=== PATIENT | female | born 1950 | race Caucasian/White ===

== ENCOUNTER 2019-01-18 11:06 | Emergency (ER) | payer MEDICARE ==
[2019-01-18] MEDS ORDERED: 0.9 % SODIUM CHLORIDE 1,000 ML BAG IV ONE (11:29)
[2019-01-18 11:43] LABS: BASO % 0.7 % (0-6); EOS % 2.9 % (0-6); GRAN % 63.7 % (47-80); HEMATOCRIT 38.3 % (35.0-47.0); HEMOGLOBIN 12.3 gm/dl (11.6-16.0); LYMPH % 25.7 % (16-45); MEAN CELL VOLUME 98.2 fl (81-97); MEAN CORPUSCULAR HEMOGLOBIN 31.5 pg (27-33); MEAN CORPUSCULAR HGB CONC 32.1 g/dl (32-36); MEAN PLATELET VOLUME 10.3 fl (7.4-10.4); PLATELET COUNT 286 K/uL (130-400); RED CELL DISTRIBUTION WIDTH 13.2 % (11.5-14.5); WHITE BLOOD COUNT W/O DIFF 8.8 K/uL (4.2-12.2)
[2019-01-18 11:59] LABS: BLOOD UREA NITROGEN 15 mg/dL (8-23); CREATININE 0.6 mg/dL (0.5-0.9); EST GLOMERULAR FILTRATION RATE > 60 mL/min
[2019-01-18 12:00] LABS: TOTAL PROTEIN 7.8 g/dL (6.6-8.7)
[2019-01-18 12:02] LABS: GLUCOSE,RANDOM 119 mg/dL (74-109)
--- NOTE | 2019-01-18 12:02 | Emergency Department Record ---
History of Present Illness - General Chief Complaint: Abdominal Pain Stated Complaint: ABD PAIN Time Seen by Provider: 01/18/19 11:24 Source: Patient Mode of Arrival: Ambulatory Limitations: No limitations - History of Present Illness Initial Comments: pt states she has pain in her llq and has a hx of diverticulitis. no n/v/c. she has had a few bouts of diarrhea. her pain started a few days ago MD Complaint: Abdominal pain Onset/Timin -: Days(s) Location: LLQ Radiation: None Migration to: No migration Severity: Moderate Severity scale (1-10): 5 Quality: Cramping Consistency: Constant Improves With: Nothing Worsens With: Nothing Associated Symptoms: Diarrhea, Nausea - Related Data Patient : No Hx Age of Menopause: 41 Home Medications Medication Instructions Recorded Confirmed Last Taken Aspirin [Aspir-Low] 81 mg PO DAILY 01/18/19 01/18/19 Unknown Omeprazole [Prilosec] 20 mg PO DAILY 01/18/19 01/18/19 Unknown Previous Rx's Medication Instructions Recorded Ciprofloxacin HCl [Cipro] 500 mg PO Q12HR #14 tablet 01/18/19 Hydrocodone/Acetaminophen [[place] 1 each PO Q6HR #10 tablet 01/18/19 5-325 Tablet] Metronidazole [Flagyl] 500 mg PO Q8HR #21 tablet 01/18/19 Allergies Allergy/AdvReac Type Severity Reaction Status Date / Time No Known Drug Allergies Allergy Verified 01/18/19 11:18 Travel Screening - Travel/Exposure Within Last 30 Days Have you traveled within the last 30 days?: No Review of Systems Reviewed: No additional complaints except as noted below Constitutional: Reports: As per HPI. Denies: Chills, Fever, Malaise, Night sweats, Weakness, Weight change Eyes: Reports: As per HPI. Denies: Eye discharge, Eye pain, Photophobia, Vision change ENT: Reports: As per HPI. Denies: Congestion, Dental pain, Ear pain, Epistaxis , Hearing loss, Throat pain Respiratory: Reports: As per HPI. Denies: Cough, Dyspnea, Hemoptysis, Stridor, Wheezes Cardiovascular: Reports: As per HPI. Denies: Arrhythmia, Chest pain, Dyspnea on exertion, Edema, Murmurs, Orthopnea, Palpitations, Paroxysmal nocturnal dyspnea, Rheumatic Fever, Syncope Endocrine: Reports: As per HPI. Denies: Fatigue, Heat or cold intolerance, Polydipsia, Polyuria Gastrointestinal: Reports: As per HPI. Denies: Abdominal pain, Constipation, Diarrhea, Hematemesis, Hematochezia, Melena, Nausea, Vomiting Genitourinary: Reports: As per HPI. Denies: Abnormal menses, Discharge, Dyspareunia, Dysuria, Frequency, Hematuria, Incontinence, Retention, Urgency Musculoskeletal: Reports: As per HPI. Denies: Arthralgia, Back pain, Gout, Joint swelling, Myalgia, Neck pain Skin: Reports: As per HPI. Denies: Bruising, Change in color, Change in hair/ nails, Lesions, Pruritus, Rash Neurological: Reports: As per HPI. Denies: Abnormal gait, Confusion, Headache, Numbness, Paresthesias, Seizure, Tingling, Tremors, Vertigo, Weakness Psychiatric: Reports: As per HPI. Denies: Anxiety, Auditory hallucinations, Depression, Homicidal thoughts, Suicidal thoughts, Visual hallucinations Hematological/Lymphatic: Reports: As per HPI. Denies: Anemia, Blood Clots, Easy bleeding, Easy bruising, Swollen glands Past Medical History - SOCIAL HISTORY Smoking Status: Current every day smoker Alcohol Use: Occasional Drug Use: None - RESPIRATORY Hx Respiratory Disorders: No - CARDIOVASCULAR Hx Cardio Disorders: Yes Comment:: PVD - NEURO Hx Neuro Disorders: No - GI Hx GI Disorders: Yes Hx Diverticulitis: Yes Hx GI Bleed: Yes Hx Reflux: Yes Hx Ulcer: Yes - Hx Genitourinary Disorders: No - ENDOCRINE Hx Endocrine Disorders: Yes Hx Thyroid Disease: Yes - MUSCULOSKELETAL Hx Musculoskeletal Disorders: Yes - PSYCH Hx Psych Problems: No - HEMATOLOGY/ONCOLOGY Hx Hematology/Oncology Disorders: No Family Medical History Any Significant Family History?: No Physical Exam - General General Appearance: Alert, Oriented x3, Cooperative, Mild distress - Head Head exam: Normal inspection - Eye Eye exam: Normal appearance, PERRL, EOMI Pupils: Normal accommodation - ENT ENT exam: Normal exam, Mucous membranes moist, Normal external ear exam, Normal orophraynx Ear exam: Normal external inspection. negative: External canal tenderness Nasal Exam: Normal inspection. negative: Discharge, Sinus tenderness Mouth exam: Normal external inspection, Tongue normal Teeth exam: Normal inspection. negative: Dental caries Throat exam: Normal inspection. negative: Tonsillar erythema, Tonsillar exudate - Neck Neck exam: Normal inspection, Full ROM. negative: Tenderness - Respiratory Respiratory exam: Normal lung sounds bilaterally. negative: Respiratory distress - Cardiovascular Cardiovascular Exam: Regular rate, Normal rhythm, Normal heart sounds - GI/Abdominal GI/Abdominal exam: Soft, Normal bowel sounds, Tenderness (llq) - Rectal Rectal exam: Deferred - exam: Deferred - Extremities Extremities exam: Normal inspection, Full ROM, Normal capillary refill. negative: Tenderness - Back Back exam: Reports: Normal inspection, Full ROM. Denies: Muscle spasm, Rash noted, Tenderness - Neurological Neurological exam: Alert, CN II-XII intact, Normal gait, Oriented X3 - Psychiatric Psychiatric exam: Normal affect, Normal mood - Skin Skin exam: Dry, Intact, Normal color, Warm Course Vital Signs 01/18/19 11:11 Temperature 97.9 F Pulse Rate 97 H Respiratory 20 Rate Blood Pressure 164/77 Pulse Ox 96 Medical Decision Making - Lab Data Result diagrams: 01/18/19 11:37 01/18/19 11:37 Lab Results 01/18/19 Range/Units 11:37 WBC 8.8 (4.2-12.2) K/uL RBC 3.90 (3.80-5.40) M/uL Hgb 12.3 (11.6-16.0) gm/dl Hct 38.3 (35.0-47.0) % MCV 98.2 H (81-97) fl MCH 31.5 (27-33) pg MCHC 32.1 (32-36) g/dl RDW 13.2 (11.5-14.5) % Plt Count 286 (130-400) K/uL MPV 10.3 (7.4-10.4) fl Gran % 63.7 (47-80) % Lymphocytes % 25.7 (16-45) % Monocytes % 7.0 (0-9) % Eosinophils % 2.9 (0-6) % Basophils % 0.7 (0-6) % Disposition Disposition: Discharge Clinical Impression: Diverticulitis Disposition: Home, Self-Care Condition: (1) Good Instructions: Diverticulitis (ED) Additional Instructions: follow up with family doctor. return sooner if worse. rest. Prescriptions: Hydrocodone/Acetaminophen [[place] 5-325 Tablet] 1 each PO Q6HR #10 tablet Metronidazole [Flagyl] 500 mg PO Q8HR #21 tablet Ciprofloxacin HCl [Cipro] 500 mg PO Q12HR #14 tablet Forms: Patient Portal Access Quality - Quality Measures Quality Measures: N/A - Blood Pressure Screening Does Patient Have Any of the Following: No Blood Pressure Classification: Hypertensive Reading Systolic Measurement: 164 Diastolic Measurement: 77 Screening for High Blood Pressure: < First Hypertensive BP, F/U Documented > [ G8950] First Hypertensive Follow-up Interventions: Follow-up with rescreen GT 1 day and LT 4 weeks.
[2019-01-18 12:04] LABS: ALT/SGPT 13 U/L (<33); AST/SGOT 15 U/L (10.0-35.0)
[2019-01-18 12:05] LABS: ALBUMIN 3.8 g/dL (4.0-5.0); ALKALINE PHOSPHATASE 87 U/L (45-87)
[2019-01-18 12:13] LABS: URINE APPEARANCE SL CLOUDY; URINE BILIRUBIN NEGATIVE (NEGATIVE); URINE BLOOD NEGATIVE (NEGATIVE); URINE COLOR YELLOW; URINE GLUCOSE (UA) NEGATIVE (NEGATIVE); URINE KETONE NEGATIVE (NEGATIVE); URINE LEUKOCYTE ESTERASE NEGATIVE (NEGATIVE); URINE NITRITE NEGATIVE (NEGATIVE); URINE PROTEIN NEGATIVE (NEGATIVE); URINE UROBILINOGEN 0.2 E.U./dL (0.20 - 1.00)
--- NOTE | 2019-01-20 18:02 | CT SCAN REPORT ---
DATE: 01/18/2019. EXAM: CT OF THE ABDOMEN AND PELVIS. HISTORY: Left lower quadrant pain for two days. TECHNIQUE: CT of the abdomen and pelvis was performed without intravenous or oral contrast. COMPARISON: CT of the abdomen and pelvis dated 07/02/2016. FINDINGS: Lung bases are unremarkable. Examination compromised by the lack of intravenous and oral contrast. There are bilateral vascular calcifications in the kidneys bilaterally. No obvious collecting system calcification or renal calculus. No ureteral calculus or hydronephrosis. There is no contour-deforming renal mass. There is apparent wall thickening of the sigmoid colon. There is diverticulosis and there are some streaky changes in the fat adjacent to the sigmoid colon suggesting diverticulitis. No abscess. No free air or free fluid identified. The unenhanced liver and spleen are unremarkable. No pancreatic mass or inflammatory changes. No adrenal lesion. No calcified gallstones. There are atherosclerotic changes in the abdominal aorta with no aneurysm. No periaortic mass or adenopathy. There are no dilated bowel loops. Uterus and ovaries are grossly unremarkable. IMPRESSION: 1. THERE IS DIVERTICULOSIS. 2. THERE ARE INFLAMMATORY CHANGES SUGGESTED IN THE SIGMOID COLON LIKELY DUE TO DIVERTICULITIS. NO ABSCESS, FREE AIR, OR FREE FLUID IDENTIFIED. 3. BILATERAL RENAL CALCIFICATIONS LIKELY AN AVASCULAR NATURE. NO RENAL CALCULI OR URETERAL CALCULI SEEN. NO HYDRONEPHROSIS. 4. OTHER FINDINGS ABOVE. JOB NUMBER: [id number] [facility]
== END 2019-01-18 13:19 | disposition home or self-care (01) ==
LOC: ER 11:06
DX: K57.92 Diverticulitis of intestine, part unspecified, without perforation or abscess without bleeding (principal); R19.7 Diarrhea, unspecified; R11.0 Nausea; F17.210 Nicotine dependence, cigarettes, uncomplicated
CPT/HCPCS: 74176; 80053; 81003; 83605; 85025; 96360; 99284; J7030

== ENCOUNTER 2019-08-29 16:24 | Emergency (ER) | payer MEDICARE ==
--- NOTE | 2019-08-29 16:56 | Emergency Department Record ---
History of Present Illness - General Chief complaint: Eye Problem Stated complaint: R EYE SWOLLEN/RASH IN SCALP/PAIN ON R SIDE OF FACE Time Seen by Provider: 08/29/19 16:46 Source: Patient Mode of Arrival: Ambulatory Limitations: No limitations - History of Present Illness Initial comments: 68 yo female presents with a left sided facial rash that involves the forehead, eye lids, and cheek. The onset was last . She states it is irritating but not particular painful. It does not affect her vision except for some left lid swelling. No vision lose. She reports she was seen in the [facility] care last week and was treated with Amoxicillin for fluid in the left ear. She still has some pain over the left ear area but the rash does not effect the ear. No fever. No ringing in her ears. MD chief complaint: Other (Facial erythema forehead around the eye) -: Days(s) (3) Onset Description: Gradual Location: Left eye Place: Home If Injury: None Eye Symptoms: Other Severity: Moderate If Pain, Quality: Aching Consistency: Constant Associated Symptoms: None Treatments Prior to Arrival: None - Related Data Previous Rx's Medication Instructions Recorded Hydrocodone/Acetaminophen [[place] 1 each PO Q6HR #10 tablet 01/18/19 5-325 Tablet] Allergies Allergy/AdvReac Type Severity Reaction Status Date / Time No Known Drug Allergies Allergy Unverified 08/25/19 11:28 Review of Systems Constitutional: Denies: Chills, Fever, Malaise, Weakness Eyes: Denies: Eye discharge, Eye pain, Photophobia, Vision change ENT: Reports: Ear pain. Denies: Congestion, Throat pain Respiratory: Denies: Cough, Dyspnea, Hemoptysis, Stridor, Wheezes Cardiovascular: Denies: Chest pain, Palpitations, Syncope Endocrine: Denies: Fatigue, Polydipsia, Polyuria Gastrointestinal: Denies: Abdominal pain, Diarrhea, Nausea, Vomiting Genitourinary: Denies: Dysuria, Urgency Musculoskeletal: Denies: Arthralgia, Back pain, Myalgia Skin: Denies: Bruising, Change in color, Rash Neurological: Denies: Headache, Numbness, Weakness Psychiatric: Denies: Anxiety Hematological/Lymphatic: Denies: Easy bleeding, Easy bruising Past Medical History - SOCIAL HISTORY Smoking Status: Current every day smoker Drug Use: None - RESPIRATORY Hx Respiratory Disorders: No - CARDIOVASCULAR Hx Cardio Disorders: Yes Comment:: PVD - NEURO Hx Neuro Disorders: No - GI Hx GI Disorders: Yes Hx Diverticulitis: Yes Hx GI Bleed: Yes Hx Reflux: Yes Hx Ulcer: Yes - Hx Genitourinary Disorders: No - ENDOCRINE Hx Endocrine Disorders: Yes Hx Thyroid Disease: Yes - MUSCULOSKELETAL Hx Musculoskeletal Disorders: Yes - PSYCH Hx Psych Problems: No - HEMATOLOGY/ONCOLOGY Hx Hematology/Oncology Disorders: No Physical Exam - General General Appearance: Alert, Oriented x3, Cooperative, No acute distress Limitations: No limitations - Head Head exam: negative: Normal inspection Image of Face/Head: 1 - erythema, slight induration, no vesicle or blisters, soft lid edema involves the nose, spares right side - Eye Eye exam: Conjunctival injection, EOMI, Periorbital swelling. negative: Normal appearance, Periorbital tenderness, Scleral icterus - ENT ENT exam: Normal exam, Mucous membranes moist, Normal orophraynx, TM's normal bilaterally Ear exam: Normal external inspection Nasal Exam: negative: Normal inspection (erythema external) Mouth exam: Normal external inspection Throat exam: Normal inspection - Neck Neck exam: Normal inspection. negative: Lymphadenopathy - Respiratory Respiratory exam: Normal lung sounds bilaterally. negative: Respiratory distress, Rhonchi, Stridor, Wheezes - Cardiovascular Cardiovascular Exam: Regular rate, Normal rhythm, Normal heart sounds - GI/Abdominal GI/Abdominal exam: Soft. negative: Tenderness - Rectal Rectal exam: Deferred - exam: Deferred - Extremities Extremities exam: Normal inspection - Back Back exam: Denies: CVA tenderness (R), CVA tenderness (L) - Neurological Neurological exam: Alert, Oriented X3 - Psychiatric Psychiatric exam: Normal affect, Normal mood. negative: Agitated, Anxious - Skin Skin exam: Dry, Erythema, Intact, Warm Course - Reevaluation(s) Reevaluation #1: 08/29/19 17:10 The eye was stained and examined under magnification No abnormal stain uptake. No visible lesions She does not have any subjective vision changes . She states the only limitation to her vision is lid swelling 08/29/19 17:14 The findings at this time suggest either cellulitis of the face or possible sh ingles. There are no discrete blisters or vesicles. The eye staining is negative. I recommend a swab for shingles and treat for cellulitis and shingles at this time 08/29/19 17:39 The labs were reviewed No acute changes on the CBC or BMP The CRP is normal 08/29/19 19:37 I recommend admission at this time The patient declines but will return in 10 hours for second dose of antibiotics She will be provided the next dose of Acyclovir 800mg Medical Decision Making - Lab Data Result diagrams: 08/29/19 17:10 08/29/19 17:10 Disposition Disposition: Discharge Clinical Impression: Cellulitis Qualifiers: Site of cellulitis: face Qualified Code(s): L03.211 - Cellulitis of face Shingles Qualifiers: Herpes zoster complications: with other complications Qualified Code(s): B02.8 - Zoster with other complications Disposition: Home, Self-Care Condition: (1) Good Instructions: Shingles (ED), Cellulitis (ED) Additional Instructions: Return at 5:30 for a recheck of the area of concern Take the next dose of Acyclovir 11pm Return without fail Forms: Patient Portal Access Time of Disposition: 19:39 Quality - Quality Measures Quality Measures: N/A - Blood Pressure Screening Does Patient Have Any of the Following: No Blood Pressure Classification: Hypertensive Reading Systolic Measurement: 146 Diastolic Measurement: 76 Screening for High Blood Pressure: < Pre-Hypertensive BP, F/U Documented > [G8950] Pre-Hypertensive Follow-up Interventions: Referral to alternative/primary care provider.
[2019-08-29] MEDS ORDERED: ACYCLOVIR 200 MG CAPSULE PO ONE ×2 (17:14→19:26)
[2019-08-29] MEDS ORDERED: VANCOMYCIN 1GM/200ML PREMIX 1 GM/200 ML PIGGYBACK IVPB SCH (17:15)
[2019-08-29 17:17] LABS: ABSOLUTE NEUTROPHIL COUNT 3.34; BASO % 1.3 % (0-6); EOS % 2.7 % (0-6); GRAN % 59.6 % (47-80); HEMATOCRIT 42.9 % (35.0-47.0); HEMOGLOBIN 13.5 gm/dl (11.6-16.0); LYMPH % 26.7 % (16-45); MEAN CELL VOLUME 97.7 fl (81-97); MEAN CORPUSCULAR HEMOGLOBIN 30.8 pg (27-33); MEAN CORPUSCULAR HGB CONC 31.5 g/dl (32-36); MEAN PLATELET VOLUME 10.2 fl (7.4-10.4); MONO % 9.7 % (0-9); PLATELET COUNT 226 K/uL (130-400); RED BLOOD COUNT 4.39 M/uL (3.80-5.40); RED CELL DISTRIBUTION WIDTH 14.7 % (11.5-14.5); WHITE BLOOD COUNT W/O DIFF 5.6 K/uL (4.2-12.2)
[2019-08-29 17:29] LABS: BLOOD UREA NITROGEN 19 mg/dL (8-23); CREATININE 0.8 mg/dL (0.5-0.9); EST GLOMERULAR FILTRATION RATE > 60 mL/min
[2019-08-29 17:31] LABS: GLUCOSE,RANDOM 109 mg/dL (74-109)
[2019-08-29 17:34] LABS: C-REACTIVE PROTEIN 0.36 mg/dL (<0.5)
[2019-08-31 23:33] LABS: SPECIMEN TYPE Not specified
== END 2019-08-29 19:52 | disposition home or self-care (01) ==
LOC: ER 16:24
DX: L03.211 Cellulitis of face (principal); B02.8 Zoster with other complications; F17.210 Nicotine dependence, cigarettes, uncomplicated
CPT/HCPCS: 80048; 85025; 86140; 96365; 99284; J3370

== ENCOUNTER 2019-08-30 05:55 | Inpatient (IN) | payer MEDICARE ==
[2019-08-30] MEDS ORDERED: ACYCLOVIR 200 MG CAPSULE PO ONE (06:10)
[2019-08-30] MEDS ORDERED: VANCOMYCIN 1GM/200ML PREMIX 1 GM/200 ML PIGGYBACK IVPB SCH ×3 (06:15→20:00)
[2019-08-30] MEDS ORDERED: HYDROMORPHONE HCL 2 MG/ML VIAL IVP ONE ×2 (06:16→12:47)
[2019-08-30] MEDS ORDERED: ONDANSETRON HCL IV 4 MG/2 ML VIAL IVP ONE (06:16)
--- NOTE | 2019-08-30 06:46 | Emergency Department Record ---
History of Present Illness - General Chief complaint: Itching Stated complaint: RECHECK Time Seen by Provider: 08/30/19 06:06 Source: Patient Mode of Arrival: Ambulatory Limitations: No limitations - History of Present Illness Initial comments: pt here for repeat vanco and to be admitted. she had a painful night with cellulitis vs shingles. she vomited 2x as well MD complaint: Lesion, Rash Onset/Timin -: Days(s) Location: Face Severity: Moderate Quality: Aching Consistency: Constant Associated symptoms: Malaise, Nausea, Vomiting Treatments Prior to Arrival: Antibiotic, Other - Related Data Previous Rx's Medication Instructions Recorded Hydrocodone/Acetaminophen [[place] 1 each PO Q6HR #10 tablet 01/18/19 5-325 Tablet] Allergies Allergy/AdvReac Type Severity Reaction Status Date / Time No Known Drug Allergies Allergy Unverified 08/25/19 11:28 Travel Screening - Travel/Exposure Within Last 30 Days Have you traveled within the last 30 days?: No - Travel/Exposure Within Last Year Have you traveled outside the [place] in the last year?: No - Additonal Travel Details Have you been exposed to anyone with a communicable illness?: No - Travel Symptoms Symptom Screening: Vomiting Review of Systems Reviewed: No additional complaints except as noted below Constitutional: Reports: As per HPI. Denies: Chills, Fever, Malaise, Night sweats, Weakness, Weight change Eyes: Reports: As per HPI. Denies: Eye discharge, Eye pain, Photophobia, Vision change ENT: Reports: As per HPI. Denies: Congestion, Dental pain, Ear pain, Epistaxis, Hearing loss, Throat pain Respiratory: Reports: As per HPI. Denies: Cough, Dyspnea, Hemoptysis, Stridor, Wheezes Cardiovascular: Reports: As per HPI. Denies: Arrhythmia, Chest pain, Dyspnea on exertion, Edema, Murmurs, Orthopnea, Palpitations, Paroxysmal nocturnal dyspnea, Rheumatic Fever, Syncope Endocrine: Reports: As per HPI. Denies: Fatigue, Heat or cold intolerance, Polydipsia, Polyuria Gastrointestinal: Reports: As per HPI. Denies: Abdominal pain, Constipation, Diarrhea, Hematemesis, Hematochezia, Melena, Nausea, Vomiting Genitourinary: Reports: As per HPI. Denies: Abnormal menses, Discharge, Dyspareunia, Dysuria, Frequency, Hematuria, Incontinence, Retention, Urgency Musculoskeletal: Reports: As per HPI. Denies: Arthralgia, Back pain, Gout, Joint swelling, Myalgia, Neck pain Skin: Reports: As per HPI. Denies: Bruising, Change in color, Change in hair/nails, Lesions, Pruritus, Rash Neurological: Reports: As per HPI. Denies: Abnormal gait, Confusion, Headache, Numbness, Paresthesias, Seizure, Tingling, Tremors, Vertigo, Weakness Psychiatric: Reports: As per HPI. Denies: Anxiety, Auditory hallucinations, Depression, Homicidal thoughts, Suicidal thoughts, Visual hallucinations Hematological/Lymphatic: Reports: As per HPI. Denies: Anemia, Blood Clots, Easy bleeding, Easy bruising, Swollen glands Past Medical History - SOCIAL HISTORY Smoking Status: Current every day smoker - RESPIRATORY Hx Respiratory Disorders: No - CARDIOVASCULAR Hx Cardio Disorders: Yes Comment:: PVD - NEURO Hx Neuro Disorders: No - GI Hx GI Disorders: Yes Hx Diverticulitis: Yes Hx GI Bleed: Yes Hx Reflux: Yes Hx Ulcer: Yes - Hx Genitourinary Disorders: No - ENDOCRINE Hx Endocrine Disorders: Yes Hx Thyroid Disease: Yes - MUSCULOSKELETAL Hx Musculoskeletal Disorders: Yes - PSYCH Hx Psych Problems: No - HEMATOLOGY/ONCOLOGY Hx Hematology/Oncology Disorders: No Family Medical History Any Significant Family History?: No Physical Exam - General General Appearance: Alert, Oriented x3, Cooperative, Mild distress - Head Head exam: Normal inspection - Eye Eye exam: Normal appearance, PERRL, EOMI Pupils: Normal accommodation - ENT ENT exam: Normal exam, Mucous membranes moist, Normal external ear exam, Normal orophraynx Ear exam: Normal external inspection. negative: External canal tenderness Nasal Exam: Normal inspection. negative: Discharge, Sinus tenderness Mouth exam: Normal external inspection, Tongue normal Teeth exam: Normal inspection. negative: Dental caries Throat exam: Normal inspection. negative: Tonsillar erythema, Tonsillar exudate - Neck Neck exam: Normal inspection, Full ROM. negative: Tenderness - Respiratory Respiratory exam: Normal lung sounds bilaterally. negative: Respiratory distres s - Cardiovascular Cardiovascular Exam: Regular rate, Normal rhythm, Normal heart sounds - GI/Abdominal GI/Abdominal exam: Soft, Normal bowel sounds. negative: Tenderness - Rectal Rectal exam: Deferred - exam: Deferred - Extremities Extremities exam: Normal inspection, Full ROM, Normal capillary refill. negative: Tenderness - Back Back exam: Reports: Normal inspection, Full ROM. Denies: Muscle spasm, Rash noted, Tenderness - Neurological Neurological exam: Alert, CN II-XII intact, Normal gait, Oriented X3 - Psychiatric Psychiatric exam: Normal affect, Normal mood - Skin Skin exam: Dry, Intact, Normal color, Rash, Warm Distribution of rash: Face Description of rash: Erythematous, Swelling, Tenderness, Vesicular Course Vital Signs 08/30/19 06:08 Temperature 97.7 F Pulse Rate 101 H Respiratory 16 Rate Blood Pressure 134/80 Pulse Ox 95 Disposition Disposition: Admit Clinical Impression: Cellulitis Qualifiers: Site of cellulitis: face Qualified Code(s): L03.211 - Cellulitis of face Shingles Qualifiers: Herpes zoster complications: with other complications Qualified Code(s): B02.8 - Zoster with other complications Disposition: Still a Patient at [facility] Decision to Admit: Admit from ER Decision to Admit Date: 08/30/19 Decision to Admit Time: 06:55 Forms: Patient Portal Access Quality - Quality Measures Quality Measures: N/A - Blood Pressure Screening Does Patient Have Any of the Following: No Blood Pressure Classification: Pre-Hypertensive BP Reading Systolic Measurement: 134 Diastolic Measurement: 80 Screening for High Blood Pressure: < Pre-Hypertensive BP, F/U Documented > [G8950] Pre-Hypertensive Follow-up Interventions: Follow-up with rescreen every year.
--- NOTE | 2019-08-30 10:57 | History & Physical ---
History of Present Illness - Date of Service Date of Service for History & Physical: 08/31/19 - History of Present Illness Admitting Diagnosis: shingles and cellultis of face History of Present Illness: 68 y female returned to [facility] ER for continued pain and swelling secondary to shingles of the face. Pt was seen the previous day, given abx and antiviral to control progression. Pt denies any recent illness, stress, or exposure. Had PNA and flu vaccine 1 month ago, had considered shingles vaccine but did not get it prior to this event. Labs were drawn previous visit 97.7, HR 101, BP 134/80, RR 16, 95% RA, pain 05/04 Pt given acyclovir 800mg , acetominophen 650mg, dilaudid 0.5mg IVP, zofran 4mg IVP 08/30/19 -pt resting in bed, erythema, edema noted to right side of face. Upper and lower lid edema noted but pt is able to open her eye and denies any vision disturbance. Maxofacial CT ordered with contrast to r/o orbital cellulitis vs preseptal cellulitis. pt started on gabapentin for pain control. Pt denies any visual changes, blurring or spots. POC IV abx, pain medication, antiviral medication, and f/u with verifying specialist. PCP Travel Screening - Travel/Exposure Within Last 30 Days Have you traveled within the last 30 days?: No - Travel/Exposure Within Last Year Have you traveled outside the [place] in the last year?: No - Additonal Travel Details Have you been exposed to anyone with a communicable illness?: No - Travel Symptoms Symptom Screening: None Review of Systems Constitutional: Reports: As per HPI. Denies: Chills, Fever, Malaise, Night sweats, Weakness, Weight change Eyes: Reports: As per HPI. Denies: Eye discharge, Eye pain, Photophobia, Vision change ENT: Reports: As per HPI. Denies: Congestion, Dental pain, Ear pain, Epistaxis, Hearing loss, Throat pain Respiratory: Reports: As per HPI. Denies: Cough, Dyspnea, Hemoptysis, Stridor, Wheezes Cardiovascular: Reports: As per HPI. Denies: Arrhythmia, Chest pain, Dyspnea on exertion, Edema, Murmurs, Orthopnea, Palpitations, Paroxysmal nocturnal dyspnea, Rheumatic Fever, Syncope Endocrine: Reports: As per HPI. Denies: Fatigue, Heat or cold intolerance, Polydipsia, Polyuria Gastrointestinal: Reports: As per HPI. Denies: Abdominal pain, Constipation, Diarrhea, Hematemesis, Hematochezia, Melena, Nausea, Vomiting Genitourinary: Reports: As per HPI. Denies: Abnormal menses, Discharge, Dyspareunia, Dysuria, Frequency, Hematuria, Incontinence, Retention, Urgency Musculoskeletal: Reports: As per HPI. Denies: Arthralgia, Back pain, Gout, Anu nt swelling, Myalgia, Neck pain Skin: Reports: As per HPI. Denies: Bruising, Change in color, Change in hair/nails, Lesions, Pruritus, Rash Neurological: Reports: As per HPI. Denies: Abnormal gait, Confusion, Headache, Numbness, Paresthesias, Seizure, Tingling, Tremors, Vertigo, Weakness Psychiatric: Reports: As per HPI. Denies: Anxiety, Auditory hallucinations, Depression, Homicidal thoughts, Suicidal thoughts, Visual hallucinations Hematological/Lymphatic: Reports: As per HPI. Denies: Anemia, Blood Clots, Easy bleeding, Easy bruising, Swollen glands Past Medical History - SOCIAL HISTORY Smoking Status: Current every day smoker - RESPIRATORY Hx Respiratory Disorders: No - CARDIOVASCULAR Hx Cardio Disorders: Yes Comment:: PVD - NEURO Hx Neuro Disorders: No - GI Hx GI Disorders: Yes Hx Diverticulitis: Yes Hx GI Bleed: Yes Hx Reflux: Yes Hx Ulcer: Yes - Hx Genitourinary Disorders: No - ENDOCRINE Hx Endocrine Disorders: Yes Hx Thyroid Disease: Yes - MUSCULOSKELETAL Hx Musculoskeletal Disorders: Yes - PSYCH Hx Psych Problems: No - HEMATOLOGY/ONCOLOGY Hx Hematology/Oncology Disorders: No Family Medical History Any Significant Family History?: No H&P Meds/Allergies - Allergies Allergies: Allergies Allergy/AdvReac Type Severity Reaction Status Date / Time No Known Drug Allergies Allergy Unverified 08/25/19 11:28 - Home Medications Previous Rx's Medication Instructions Recorded Hydrocodone/Acetaminophen [[place] 1 each PO Q6HR #10 tablet 01/18/19 5-325 Tablet] - Active Medications Active Medications: Current Medications VANCOMYCIN 1GM/200ML PREMIX (Vancomycin 1 Gram/200 Ml Bag) 1 gm in 200 mls @ 200 mls/hr IVPB Q12H BAILEY Last Infusion: 08/30/19 07:30 Dose: Infused Documented by: Physical Exam - Vital Signs Vital Signs: Vital Signs - Last 24 Hrs Temp Pulse Pulse Resp BP BP Pulse Ox 08/30/19 08:22 93 H 123/82 08/30/19 08:08 78 16 144/60 98 08/30/19 06:08 97.7 F 101 H 16 134/80 95 - General General Appearance: Alert, Oriented x3, Cooperative, No acute distress Limitations: No limitations - Head Head exam: Normal inspection - Eye Eye exam: Normal appearance, PERRL, EOMI, Periorbital swelling, Periorbital tenderness Pupils: Normal accommodation - ENT ENT exam: Normal exam, Mucous membranes moist, Normal external ear exam, Normal orophraynx Ear exam: Normal external inspection. negative: External canal tenderness Nasal Exam: Normal inspection. negative: Discharge, Sinus tenderness Mouth exam: Normal external inspection, Tongue normal Teeth exam: Normal inspection. negative: Dental caries Throat exam: Normal inspection. negative: Tonsillar erythema, Tonsillar exudate - Neck Neck exam: Normal inspection, Full ROM. negative: Tenderness - Respiratory Respiratory exam: Normal lung sounds bilaterally. negative: Respiratory distress - Cardiovascular Cardiovascular Exam: Regular rate, Normal rhythm, Normal heart sounds Peripheral Pulses: 3+: Radial (R), Radial (L), Dorsalis Pedis (R), Dorsalis Pedis (L) - GI/Abdominal GI/Abdominal exam: Soft, Normal bowel sounds. negative: Tenderness - Rectal Rectal exam: Deferred - exam: Deferred - Extremities Extremities exam: Normal inspection, Full ROM, Normal capillary refill. negative: Tenderness - Back Back exam: Reports: Normal inspection, Full ROM. Denies: Muscle spasm, Rash noted, Tenderness - Neurological Neurological exam: Alert, CN II-XII intact, Normal gait, Oriented X3 - Psychiatric Psychiatric exam: Normal affect, Normal mood - Skin Skin exam: Dry, Intact, Normal color, Rash, Warm Distribution of rash: Face Description of rash: Erythematous, Swelling, Tenderness, Vesicular Results - Labs Result Diagrams: 08/31/19 06:24 08/31/19 06:24 VTE H&P Assessment - Risk for VTE Risk for VTE: Yes Risk Level: Moderate Risk Assessment Date: 08/30/19 Risk Assessment Time: 11:00 VTE Orders Placed or Will Be Placed: Yes Plan - Inpatient Certification Inpatient Certification: Admit to inpatient care: Based on my medical assessment, after consideration of patient's risk factors (age, co-morbidities and patient presenting symptoms and acuity), I expect that this patient will remain in the hospital greater than or equal to two midnights and that the services needed warrant inpatient care because: Patient Risk Factors: postseptal cellulitis, viral meningitis, electrolyte imbalance Estimated length of stay: [] The patient may reasonably be expected to be discharged or transferred to a hospital within 96 hours after admission to [facility]. Services needed: IV abx, pain medication, repeat labs Post hospital care (if known): [] I certify that my determination is in accordance with my understanding of Medicare requirements for reasonable and necessary inpatient services. 08/31/19 09:20 - Detailed Diagnosis and Plan (1) Cellulitis Current Visit: Yes Status: Acute Qualifiers: Site of cellulitis: face Qualified Code(s): L03.211 - Cellulitis of face Base Code: L03.90 - CELLULITIS, UNSPECIFIED Comment: 08/30/19 -changing Vacno IV abx to rocpehin 1gm BID (no current concers for MRSA) -CT ordered maxofacial to r/o postseptal cellulitis from preseptal -pt denies vision changes (2) Shingles Current Visit: Yes Status: Acute Qualifiers: Herpes zoster complications: with other complications Qualified Code(s): B02.8 - Zoster with other complications Base Code: B02.9 - ZOSTER WITHOUT COMPLICATIONS Comment: 08/30/19 -no open lesions noted, concerns for CN V involvement r/t location, amt of pain -antiviral 800mg acyclovir q4 hrs (3) DVT prophylaxis Current Visit: Yes Status: Acute Base Code: Z29.9 - ENCOUNTER FOR PROPHYLACTIC MEASURES, UNSPECIFIED Comment: 08/30/19 -SCDs while in bed -lovenox 40mg SQ to start tomorrow r/t age, decreased mobility, and h/o smoking (4) Full code status Current Visit: Yes Status: Acute Base Code: Z78.9 - OTHER SPECIFIED HEALTH STATUS Comment: 08/30/19 -full code status
[2019-08-30] MEDS ORDERED: ACETAMINOPHEN 325 MG TAB PO PRN (11:03)
[2019-08-30] MEDS ORDERED: TEMAZEPAM 15 MG CAPSULE PO PRN (11:03)
[2019-08-30] MEDS ORDERED: ATORVASTATIN 20 MG TABLET PO SCH (11:30)
[2019-08-30] MEDS: CEFTRIAXONE 1GM/50ML BAG 1 GM/50 ML BAG IVPB SCH ×2 (11:46→22:30)
[2019-08-30] MEDS: ASPIRIN 81 MG TABEC PO SCH (11:47)
[2019-08-30] MEDS: ACYCLOVIR 200 MG CAPSULE PO SCH ×4 (11:47→22:31)
[2019-08-30] MEDS: MONTELUKAST SODIUM 10MG TABLET PO SCH (11:48)
[2019-08-30 12:00] LABS: BLOOD UREA NITROGEN 20 mg/dL (8-23); CREATININE 0.6 mg/dL (0.5-0.9); EST GLOMERULAR FILTRATION RATE > 60 mL/min
[2019-08-30] MEDS ORDERED: HYDROCODONE/APAP 5/325MG TABLET PO SCH (12:00)
[2019-08-30 12:02] LABS: GLUCOSE,RANDOM 130 mg/dL (74-109)
[2019-08-30 12:10] LABS: VANCOMYCIN PEAK 19.7 ug/mL (20-40)
[2019-08-30] MEDS ORDERED: 0.9 % SODIUM CHLORIDE 500ML 500 ML IV ONE (12:55)
[2019-08-30] MEDS: GABAPENTIN 300 MG CAPSULE PO SCH ×2 (14:04→22:31)
[2019-08-30] MEDS: PANTOPRAZOLE SODIUM 40 MG TABLET PO SCH (14:04)
[2019-08-30] MEDS: LEVOTHYROXINE SODIUM 50 MCG TABLET PO SCH (14:06)
[2019-08-30] MEDS ORDERED: KETOROLAC 30 MG/ML VIAL IVP ONE (17:15)
[2019-08-30] MEDS: OXYCODONE HCL/APAP 5MG/325MG TABLET PO PRN (17:37)
[2019-08-31] MEDS: ACYCLOVIR 200 MG CAPSULE PO SCH ×3 (01:53→09:22)
[2019-08-31] MEDS: OXYCODONE HCL/APAP 5MG/325MG TABLET PO PRN ×3 (05:35→14:43)
[2019-08-31] MEDS: PANTOPRAZOLE SODIUM 40 MG TABLET PO SCH ×2 (05:35→06:04)
[2019-08-31] MEDS: LEVOTHYROXINE SODIUM 50 MCG TABLET PO SCH ×2 (05:35→06:04)
[2019-08-31 06:57] LABS: ABSOLUTE NEUTROPHIL COUNT 2.28; HEMATOCRIT 39.1 % (35.0-47.0); HEMOGLOBIN 12.3 gm/dl (11.6-16.0); MEAN CELL VOLUME 98.7 fl (81-97); MEAN CORPUSCULAR HEMOGLOBIN 31.1 pg (27-33); MEAN CORPUSCULAR HGB CONC 31.5 g/dl (32-36); PLATELET COUNT 222 K/uL (130-400); RED BLOOD COUNT 3.96 M/uL (3.80-5.40); RED CELL DISTRIBUTION WIDTH 14.4 % (11.5-14.5)
[2019-08-31 07:11] LABS: BLOOD UREA NITROGEN 16 mg/dL (8-23); CREATININE 0.6 mg/dL (0.5-0.9); EST GLOMERULAR FILTRATION RATE > 60 mL/min; GLUCOSE,RANDOM 111 mg/dL (74-109)
--- NOTE | 2019-08-31 07:19 | CT SCAN REPORT ---
EXAM: CT OF THE FACIAL BONES HISTORY: PRESEPTAL CELLULITIS. TECHNIQUE: CT of the facial bones was performed following intravenous contrast administration. Type and amount of contrast are recorded in the medical record. Comparison: None. FINDINGS: There is soft tissue swelling in the right pre-orbital and periorbital region. Soft tissue swelling appears localized in the preseptal region with no postseptal involvement. No abscess or focal fluid collection. The globes are symmetric and equal bilaterally. The optic nerves and extraocular muscles are unremarkable. No abnormal air collection seen. The visualized sinuses are clear. No sinusitis. There is no fracture or osseous abnormality. No destructive or erosive change. There are a few nonspecific cervical lymph nodes. No abnormal intracranial finding identified. IMPRESSION: 1. THERE IS SOFT TISSUE SWELLING IN THE RIGHT PRESEPTAL REGION. NO POSTSEPTAL INVOLVEMENT SEEN. 2. OTHERWISE UNREMARKABLE. JOB NUMBER: [id number] [facility]
[2019-08-31 07:28] LABS: PLATELET ESTIMATE NORMAL (NORMAL)
[2019-08-31] MEDS: GABAPENTIN 300 MG CAPSULE PO SCH (09:20)
[2019-08-31] MEDS: ASPIRIN 81 MG TABEC PO SCH (09:23)
[2019-08-31] MEDS: MONTELUKAST SODIUM 10MG TABLET PO SCH (09:23)
[2019-08-31] MEDS ORDERED: ATORVASTATIN 20 MG TABLET PO SCH (10:00)
[2019-08-31] MEDS ORDERED: ENOXAPARIN 40 MG/0.4 ML SYR SQ SCH (10:00)
[2019-08-31] MEDS: CEFTRIAXONE 1GM/50ML BAG 1 GM/50 ML BAG IVPB SCH (10:49)
[2019-08-31] MEDS ORDERED: ACYCLOVIR 200 MG CAPSULE PO SCH ×2 (14:00→22:00)
--- NOTE | 2019-08-31 14:29 | Discharge Summary ---
Providers Discharge Summary Date: 08/31/19 Date of admission: 08/30/19 08:05 Expected Date of Discharge: 08/31/19 Attending physician: BRIDGETT MORENO Primary care physician: GENEVIEVE PLASCENCIA D.O. Physical Exam - Vital Signs Vital Signs: Vital Signs - Last 24 Hrs Temp Pulse Resp BP Pulse Ox 08/31/19 09:00 84 16 126/87 96 08/31/19 05:00 98.7 F 79 18 127/65 98 08/31/19 01:00 77 18 96 08/30/19 21:00 98.7 F 81 18 141/52 96 08/30/19 17:03 98.6 F 89 18 149/78 97 - General General Appearance: Alert, Oriented x3, Cooperative, No acute distress Limitations: No limitations - Head Head exam: Normal inspection - Eye Eye exam: Normal appearance, PERRL, EOMI, Periorbital swelling, Periorbital tenderness Pupils: Normal accommodation - ENT ENT exam: Normal exam, Mucous membranes moist, Normal external ear exam, Normal orophraynx Ear exam: Normal external inspection. negative: External canal tenderness Nasal Exam: Normal inspection. negative: Discharge, Sinus tenderness Mouth exam: Normal external inspection, Tongue normal Teeth exam: Normal inspection. negative: Dental caries Throat exam: Normal inspection. negative: Tonsillar erythema, Tonsillar exudate - Neck Neck exam: Normal inspection, Full ROM. negative: Tenderness - Respiratory Respiratory exam: Normal lung sounds bilaterally. negative: Respiratory distress - Cardiovascular Cardiovascular Exam: Regular rate, Normal rhythm, Normal heart sounds Peripheral Pulses: 3+: Radial (R), Radial (L), Dorsalis Pedis (R), Dorsalis Pedis (L) - GI/Abdominal GI/Abdominal exam: Soft, Normal bowel sounds. negative: Tenderness - Rectal Rectal exam: Deferred - exam: Deferred - Extremities Extremities exam: Normal inspection, Full ROM, Normal capillary refill. negative: Tenderness - Back Back exam: Reports: Normal inspection, Full ROM. Denies: Muscle spasm, Rash noted, Tenderness - Neurological Neurological exam: Alert, CN II-XII intact, Normal gait, Oriented X3 - Psychiatric Psychiatric exam: Normal affect, Normal mood - Skin Skin exam: Dry, Intact, Normal color, Rash, Warm Distribution of rash: Face Description of rash: Erythematous, Swelling, Tenderness, Vesicular Hospitalization - Hospitalization Admission Diagnosis: shingles and cellultis of face - Problem List/Discharge Diagnosis (1) Cellulitis Current Visit: Yes Status: Acute Discharge Diagnosis: Site of cellulitis: face Qualified Code(s): L03.211 - Cellulitis of face Base Code: L03.90 - CELLULITIS, UNSPECIFIED Comment: 08/31/19 -cellulitis erythema decreasing from outline -swelling has improved upper/lower lids -no drainage or discharge noted from right eye, lesions have scabbed over -pt to d/c early to f/u with research computing specialist as no appt available inpt until . Pt to have outpt infusion x 2 and then continue cefdinir for total of 14 days abx tx 08/30/19 -changing Vacno IV abx to rocpehin 1gm BID (no current concerns for MRSA) -CT ordered maxofacial to r/o postseptal cellulitis from preseptal -pt denies vision changes (2) Shingles Current Visit: Yes Status: Acute Discharge Diagnosis: Herpes zoster complications: with other complications Qualified Code(s): B02.8 - Zoster with other complications Base Code: B02.9 - ZOSTER WITHOUT COMPLICATIONS Comment: 08/31/19 -lesions have scabbed over, antiviral continues and no spreading of rash to secondary region -no draingae from right eye but pt reporting blurred vision, 20/50 right and 20/30 left -pt d/c now to Dr Carter appt 3:30pm and f/u with PCP 09/01/19 -continue antiviral for several more days, gabapentin TID, and percocet PRN x 3 days 08/30/19 -no open lesions noted, concerns for CN V involvement r/t location, amt of pain -antiviral 800mg acyclovir q4 hrs (3) DVT prophylaxis Current Visit: Yes Status: Acute Base Code: Z29.9 - ENCOUNTER FOR SC OPHYLACTIC MEASURES, UNSPECIFIED Comment: 08/30/19 -SCDs while in bed -lovenox 40mg SQ to start tomorrow r/t age, decreased mobility, and h/o smoking (4) Full code status Current Visit: Yes Status: Acute Base Code: Z78.9 - OTHER SPECIFIED HEALTH STATUS Comment: 08/31/19 -full code status - Hospitalization Course Disposition: Home, Self-Care Hospital Course: 68 y female returned to [facility] ER for continued pain and swelling secondary to shingles of the face. Pt was seen the previous day, given abx and antiviral to control progression. Pt denies any recent illness, stress, or exposure. Had PNA and flu vaccine 1 month ago, had considered shingles vaccine but did not get it prior to this event. Labs were drawn previous visit 97.7, HR 101, BP 134/80, RR 16, 95% RA, pain 05/04 Pt given acyclovir 800mg , acetominophen 650mg, dilaudid 0.5mg IVP, zofran 4mg IVP 08/30/19 -pt resting in bed, erythema, edema noted to right side of face. Upper and lower lid edema noted but pt is able to open her eye and denies any vision disturbance. Maxofacial CT ordered with contrast to r/o orbital cellulitis vs preseptal cellulitis. pt started on gabapentin for pain control. Pt denies any visual changes, blurring or spots. POC IV abx, pain medication, antiviral medication, and f/u with research computing specialist. PCP Procedures: Imaging and X-Rays 08/30/19 10:59 MAXILLOFACIAL W CONTRAST [CT] Stat Abnormal Labs: Abnormal Lab Results 08/30/19 08/30/19 08/31/19 Range/Units 11:30 11:30 06:24 MCV 98.7 H (81-97) fl MCHC 31.5 L (32-36) g/dl MPV 11.0 H (7.4-10.4) fl Neutrophils % 45.0 L (47-80) % Sodium 135 L (136-145) mmol/L Chloride 97 L (98-107) mmol/L Carbon Dioxide 30.0 H (22-29) mmol/L Random Glucose 130 H (74-109) mg/dL Vancomycin Peak 19.7 L (20-40) ug/mL 08/31/19 Range/Units 06:24 MCV (81-97) fl MCHC (32-36) g/dl MPV (7.4-10.4) fl Neutrophils % (47-80) % Sodium (136-145) mmol/L Chloride (98-107) mmol/L Carbon Dioxide (22-29) mmol/L Random Glucose 111 H (74-109) mg/dL Vancomycin Peak (20-40) ug/mL Condition at Discharge: (2) Stable Discharge Medications - Discharge Medications Prescriptions: Acyclovir [Zovirax] 800 mg PO Q4HR 4 Days #24 capsule Gabapentin [Neurontin] 300 mg PO TID 3 Days #9 capsule Oxycodone HCl/Acetaminophen [Percocet 5mg/325mg] 1 udtab PO Q6H PRN 3 Days #12 tablet PRN Reason: Pain - Mod To Severe (5-10) Home Medications: Ambulatory Orders Cholecalciferol (Vitamin D3) [Vitamin D3] 50,000 unit PO WEEKLY cap 10/05/16 [Last Taken Unknown] Atorvastatin Calcium [Lipitor] 10 mg PO QD tab 08/11/18 [Last Taken Unknown] Levothyroxine Sodium [Synthroid] 50 mcg PO QD tab 08/11/18 [Last Taken 01/18/19] Aspirin [Aspir-Low] 81 mg PO DAILY 01/18/19 [Last Taken Unknown] Omeprazole [Prilosec] 20 mg PO DAILY 01/18/19 [Last Taken Unknown] Montelukast Sodium [Singulair] 10 mg PO DAILY tab 08/25/19 [Last Taken Unknown] Acetaminophen [Tylenol 325Mg] 650 mg PO Q6H PRN tablet 08/31/19 [Last Taken Unknown] Acyclovir [Zovirax] 800 mg PO Q4HR 4 Days #24 capsule 08/31/19 [Last Taken Unknown] Aspirin Enteric-Coated [Ecotrin (EC)] 81 mg PO DAILY tabec 08/31/19 [Last Taken Unknown] Gabapentin [Neurontin] 300 mg PO TID 3 Days #9 capsule 08/31/19 [Last Taken Unknown] Oxycodone HCl/Acetaminophen [Percocet 5mg/325mg] 1 udtab PO Q6H PRN 3 Days #12 tablet 08/31/19 [Last Taken Unknown] Discharge Plan - Discharge Instructions Activity at Discharge: Increase Activity as Tolerated Instructions: Oxycodone/Acetaminophen (By mouth), Shingles (DC), Cellulitis (DC) Additional Instructions: Appointment with Dr. Chung at [facility] today Saturday at 3:30pm. Address: [address] [place] [address]. . Outpatient infusions set up for remaining IV antibiotics. Return to [facility]. Follow up appointment with Dr. Genevieve Plascencia tomorrow, September 01 at 11:40am. Quality Measures - Quality Measures Quality Measures: Advance Directives, Documentation of Current Medications in Medical Record, Elder Maltreatment Screen and Follow-Up Plan, Screening for High Blood Pressure and F/U Documented - Current Medications Quality Measure: Measure #130: Documentation of Current Medications Documentation of Current Medications: <Current Medications Documented/Reviewed> [A8966] - Blood Pressure Screening Quality Measure: Screening for High Blood Pressure and Follow-Up Documented Does Patient Have Any of the Following: No Blood Pressure Classification: Pre-Hypertensive BP Reading Systolic Measurement: 123 Diastolic Measurement: 82 Screening for High Blood Pressure: < Pre-Hypertensive BP, F/U Documented > [O8971] Pre-Hypertensive Follow-up Interventions: Referral to alternative/primary care anais young. - Advance Directives Quality Measure: Measure #47: Care Plan Advance Directives Established: No Advance Directives Information Provided To Patient: No Advance Directives on File: No Living Will: No Power of Churn Operator: No Advance Care Planning: <Care Plan/Decision Maker Documented; Discussed & Documented> [[id number]] - Elder Abuse Suspicion Index Screening: Elder Abuse Suspicion Index Screening Rely on people for bathing, dressing, shopping, banking, etc: No Prevented from getting food, clothes, medication, etc: No Made to feel shamed or threatened by someone: No Forced to sign papers or use money against will: No Feel afraid, touched in ways not wanted or hurt physically: No Poor eye contact, withdrawn, malnourished, cuts or bruises: No Screening Result: Negative result EASI Reference Information: Connie ANTONY, Ayden C, Suyapa D, Negro Tarango.Development and validation of a tool to assist physicians identification of elder abuse: The Elder Abuse Suspicion Index (EASI ). Journal of Elder Abuse and Neglect, 2008; 20 (3): 276-300. - Elder Maltreatment Screen Quality Measures: Elder Maltreatment Screen and Follow-Up Plan Elder Maltreatment Screen: <Negative, No Follow-Up Plan Required> [G8734]
[2019-08-31] MEDS ORDERED: GABAPENTIN 300 MG CAPSULE PO SCH (16:00)
== END 2019-08-31 14:57 | disposition home or self-care (01) | DRG 603 ==
LOC: ER 05:55 → MEDSURG 08:05
PROVIDERS: ADMIT Internal Medicine; ATTEND Internal Medicine
DX: L03.211 Cellulitis of face (principal); B02.8 Zoster with other complications; I49.3 Ventricular premature depolarization; R11.2 Nausea with vomiting, unspecified; E03.9 Hypothyroidism, unspecified; K21.9 Gastro-esophageal reflux disease without esophagitis; Z29.9 Encounter for prophylactic measures, unspecified; F17.210 Nicotine dependence, cigarettes, uncomplicated; Z87.19 Personal history of other diseases of the digestive system
CPT/HCPCS: 70487; 80048; 80202; 85027; 96365; 96374; 96375; 99223; 99285; J0696; J1885; J2405; J3370; J7040